=== PATIENT | male | born 1990 | race Two or more races ===

== ENCOUNTER 2023-09-14 22:35 | Emergency (ER) | payer SELFPAY ==
[~2023-09-14] VITALS: Ht 177.8 cm; Wt 83.9 kg
[2023-09-14 22:57] VITALS: O2SAT 98
[2023-09-15] MEDS ORDERED: IBUP-2029 MT (01:30)
[2023-09-15] MEDS ORDERED: KETOROLAC 30MG/ML VIAL IM ONE (01:30)
[2023-09-15 01:40] VITALS: TEMP 98.2
[2023-09-15] MEDS: ONDANSETRON HCL 4MG/2ML INJ IV ONE (02:03)
[2023-09-15] MEDS: KETOROLAC 15MG/ML VIAL IV ONE (02:04)
[2023-09-15] MEDS: SODIUM CHLORIDE 0.9% 1,000 ML IV ONE (02:18)
[2023-09-15 02:49] LABS: BASOPHILS % 0.2 % (0.0-2.0); EOSINOPHILS % 0.3 % (0.0-5.0); HEMOGLOBIN. 14.9 g/dL (14.0-18.0); MEAN CORPUSCULAR HGB CONC 33.9 g/dL (31.0-37.0); MEAN CORPUSCULAR VOLUME 85.7 fL (80.0-94.0); MEAN PLATELET VOLUME 7.3 fl (7.4-10.4); MONOCYTES % 5.5 % (2.0-8.0); PLATELET 239 x1000/uL (130-400); RED BLOOD CELL COUNT 5.13 mill/uL (4.7-6.1); RED CELL DISTRIBUTION WIDTH 13.2 % (11.6-14.6); WHITE BLOOD COUNT 14.9 x1000/uL (4.5-11.0)
[2023-09-15 03:03] LABS: ALANINE AMINOTRANSFERASE 13 IU/L (10-49); ALBUMIN 4.3 g/dL (3.2-4.8); ASPARTATE AMINOTRANSFERASE 22 IU/L (<34); BILIRUBIN TOTAL 0.6 mg/dL (0.1-1.0); CALCIUM 8.7 mg/dL (8.7-10.4); CARBON DIOXIDE 26 mEq/L (21-32); CHLORIDE 105 mEq/L (98-107); CREATININE 1.1 mg/dL (0.6-1.3); GLUCOSE 132 mg/dL (70-105); POTASSIUM 4.3 mEq/L (3.5-5.1); PROTEIN TOTAL 6.7 g/dL (6.0-8.3); SODIUM 135 mEq/L (136-145); TROPONIN I HIGH SENSITIVITY 4 ng/L (3.0-53); UREA NITROGEN BLOOD 10 mg/dL (9-23)
[2023-09-15 03:38] LABS: *AMPHETAMINES SCREEN URINE NEGATIVE (NEGATIVE); *BARBITURATES SCREEN URINE NEGATIVE (NEGATIVE); *BENZODIAZEPINES SCREEN URINE NEGATIVE (NEGATIVE); *COCAINE SCREEN URINE NEGATIVE (NEGATIVE); CANNABINOID URINE SCREEN NEGATIVE (NEGATIVE); ECSTASY MDMA SCREEN URINE NEGATIVE (NEGATIVE); METHADONE URINE SCREEN Neg (NEGATIVE); OPIATES URINE SCREEN NEGATIVE (NEGATIVE); PHENCYCLIDINE URINE SCREEN NEGATIVE (NEGATIVE)
[2023-09-15 04:15] VITALS: BP 120/75; PULSE 73; RESP 20
[2023-09-15 04:26] LABS: TROPONIN I HIGH SENSITIVITY 5 ng/L (3.0-53)
== END 2023-09-15 04:32 | disposition home or self-care (01) ==
LOC: ER 22:35
DX: S42.402A Unspecified fracture of lower end of left humerus, initial encounter for closed fracture (principal); R55 Syncope and collapse; W18.39XA Other fall on same level, initial encounter; Y93.89 Activity, other specified; Y92.89 Other specified places as the place of occurrence of the external cause; Y99.8 Other external cause status
CPT/HCPCS: 73080; 99285; 80053; 80305; 85025; 84484; 36415; 71045; 93005; 29105; 96361; 96374; 96375; J1885; J2405; J7030; Z7610